=== PATIENT | male | born 1990 | race Caucasian/White ===

== ENCOUNTER 2023-07-29 09:25 | Emergency (ER) | payer MEDICAID, OTHER ==
[~2023-07-29] VITALS: Ht 177.8 cm; Wt 127.0 kg
[2023-07-29 09:49] VITALS: BP_SYST 109; PULSE 81; RESP 18; TEMP 97.2; O2SAT 97
[2023-07-29] MEDS ORDERED: BACTROBAN TP (10:13)
[2023-07-29] MEDS ORDERED: SULF1TAB48 PO (10:13)
[2023-07-29] MEDS ORDERED: LIDOCAINE 1%, 20 ML MDV 20 ML ONE (10:23)
[2023-07-29] MEDS: cefTRIAXone 1 GM VIAL IM ONE (10:26)
== END 2023-07-29 10:28 | disposition home or self-care (01) ==
LOC: SED 09:25
DX: L03.211 Cellulitis of face (principal); I10 Essential (primary) hypertension; Z79.899 Other long term (current) drug therapy
CPT/HCPCS: 99283; 96372; J0696; J2001